=== PATIENT | male | born 1960 | race Caucasian/White ===

== ENCOUNTER 2021-04-03 18:38 | Inpatient (IN) | payer MEDICARE ==
[~2021-04-03] VITALS: Ht 175.3 cm; Wt 54.4 kg
[2021-04-03 18:52] VITALS: BP 123/61
[2021-04-03 19:13] LABS: APTT 20.1 SECONDS (22.8-39.4); INR 1.05 (0.85-1.17); PROTIME 12.7 SECONDS (11.6-15.0)
[2021-04-03 19:14] LABS: HEMATOCRIT 48.8 % (42.0-54.0); MCHC 32.9 g/dL (31.0-37.0); MCV 91.3 fL (80.0-100.0); MEAN PLATELET VOLUME 9.6 fL (7.4-10.4); PLATELET COUNT 229 10x3/uL (130-400); RBC 5.34 10x6/uL (4.20-6.10); RDW 13.8 % (11.5-14.5); WBC 21.6 10x3/uL (4.8-10.8)
[2021-04-03 19:17] LABS: CALC OSMOLALITY 280 mosm/kg (275-300); CALCIUM 9.2 mg/dL (8.5-10.1); CARBON DIOXIDE 33.2 mmol/L (21.0-32.0); CHLORIDE - SERUM 100 mmol/L (98-107); CREATININE - SERUM 1.2 mg/dL (0.6-1.3); GLUCOSE 86 mg/dL (74-106); POTASSIUM - SERUM 4.6 mmol/L (3.5-5.1); SODIUM 138 mmol/L (136-145); UREA NITROGEN 28 mg/dL (7-18); eGFR NON AFRICAN AMERICAN 65 mL/min (90-120)
[2021-04-03 19:33] LABS: ALBUMIN 4.3 g/dL (3.4-5.0); ALKALINE PHOSPHATASE 92 U/L (30-120); ALT (SGPT) 32 U/L (10-68); BILIRUBIN - TOTAL 0.53 mg/dL (0.2-1.3); CKMB 8.4 U/L (0.0-3.6); CREATINE KINASE 194 UL (21-232); PRO BNP 507 pg/mL (0-125); PROTEIN - SERUM 7.6 g/dL (6.4-8.2)
[2021-04-03 19:47] LABS: LYMPHOCYTES 14 % (15-50); MONOCYTES 1 % (2-11); NEUTROPHILS 85 % (40-80); PLATELET ESTIMATE NORMAL
[2021-04-03 20:30] VITALS: BP 123/70
[2021-04-03 21:30] VITALS: BP 118/68
--- NOTE | 2021-04-03 21:41 | NUR ---
LAB AT BEDSIDE BC DRAWN X 2
[2021-04-03 22:30] VITALS: BP 124/71
--- NOTE | 2021-04-03 23:02 | NUR ---
PT REFUSED TO WEAR BIPAP AT THIS TIME. PT STATES THAT HE WOULD RATHER LEAVE AMA THAN WEAR A MASK. PT INFORMED THAT IT WOULD NOT BE IN HIS BEST CARE TO TAKE IT OFF PT PULLING AT BIPAP AND OTHER LINES. PT TAKEN OFF RESP CALLED. DR KURT MAYO.
[2021-04-03 23:05] VITALS: BP 118/71
--- NOTE | 2021-04-03 23:13 | NUR ---
KURT INFORMED PT WILL BE CONT TO BE MONITORED WILL SEE IN AM. RT INFORMED.
[2021-04-04] VITALS (10 sets, daily range): BP systolic 96–157; BP diastolic 32–127; BMI 17.7
--- NOTE | 2021-04-04 06:35 | NUR ---
pt still refusing bipap. pt urinal emptied. 500mL
--- NOTE | 2021-04-04 06:52 | NUR ---
ua sent to lab
[2021-04-04 07:12] LABS: BILIRUBIN NEGATIVE (NEGATIVE); KETONE NEGATIVE (NEGATIVE); NITRITE NEGATIVE (NEGATIVE); UROBILINOGEN NORMAL mg/dL (< 2)
[2021-04-04 07:20] LABS: UDS - AMPHET NEGATIVE QUAL (NEGATIVE); UDS - BARB NEGATIVE QUAL (NEGATIVE); UDS - BENZO NEGATIVE QUAL (NEGATIVE); UDS - COCAINE NEGATIVE QUAL (NEGATIVE); UDS - OPIATE NEGATIVE QUAL (NEGATIVE); UDS - PCP NEGATIVE QUAL (NEGATIVE); UDS - THC NEGATIVE QUAL (NEGATIVE)
--- NOTE | 2021-04-04 07:25 | NUR ---
LYING IN BED WITH HOB ELEVATED. AWAKE ALERT AND ORIENTATEDX3. DENIES PAIN. REFUSES TO WEAR BIPAP. O2 AT 3.5L NC. RECEIVING UPDRAFT VIA RESPATORY AT PRESENT. DEMI UPPER WHEEZES NOTED. WILL CON'T TO MONITOR.
[2021-04-04 08:20] LABS: BASOPHILS 0.3 % (0-2); EOSINOPHILS 0 % (0-7)
[2021-04-04 08:21] LABS: HEMATOCRIT 44.9 % (42.0-54.0); LYMPHOCYTES 5.7 % (15-50); MCH 30.4 pg (26.0-34.0); MCHC 33.3 g/dL (31.0-37.0); MCV 91.3 fL (80.0-100.0); MEAN PLATELET VOLUME 9.6 fL (7.4-10.4); MONOCYTES 1.1 % (2-11); NEUTROPHILS 92.9 % (40-80); RBC 4.92 10x6/uL (4.20-6.10)
[2021-04-04 08:24] LABS: PLATELET COUNT 176 10x3/uL (130-400); WBC 13.3 10x3/uL (4.8-10.8)
[2021-04-04 08:30] LABS: ALBUMIN 3.8 g/dL (3.4-5.0); BILIRUBIN - TOTAL 0.52 mg/dL (0.2-1.3); CALCIUM 8.8 mg/dL (8.5-10.1); CARBON DIOXIDE 34.7 mmol/L (21.0-32.0); CREATININE - SERUM 1.1 mg/dL (0.6-1.3); MAGNESIUM - SERUM 2.4 mg/dL (1.8-2.4); POTASSIUM - SERUM 4.7 mmol/L (3.5-5.1); PROTEIN - SERUM 6.7 g/dL (6.4-8.2)
--- NOTE | 2021-04-04 10:35 | NUR ---
ATTEMPTED TO GIVE SOUMEDROL- ORDER SAYS NAZARIO'D PER MD. MEDICATION NOT GIVEN
--- NOTE | 2021-04-04 10:59 | NUR ---
MESSAGE LEFT FOR CASE MANAGEMENT CONCERNING PATIENT BEING HOMELESS AND THE POSSIBILITY OF PATIENT NEEDING RELEASED WITH OXYGEN.
--- NOTE | 2021-04-04 11:57 | NUR ---
PATIENT SERVED LUNCH TRAY- SITTING ON SIDE OF BED- DENIED NEEDING ASSISTANCE WITH TRAY.
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
--- NOTE | 2021-04-04 17:53 | NUR ---
ALERT AND ORIENTED X4. SITTING UP IN BED. PRBC TRANSFUSION COMPLETE. DC RT HAND IV TIP INTACT. DISCHARGE INSTRUCTIONS GIVEN VERBALLY AND WRITTEN. DISCHARGE PAPERS SIGNED ON CHART. NOTIFY SPOUSE FOR RIDE. CONTINUE PLAN OF CARE AND SAFETY PRECAUTIONS.
--- NOTE | 2021-04-05 01:44 | NUR ---
PT REFUSED TO WEAR BIPAP
[2021-04-05 06:07] VITALS: BP 110/67
[2021-04-05 06:28] LABS: BASOPHILS 0.1 % (0-2); EOSINOPHILS 0 % (0-7); HEMATOCRIT 47.4 % (42.0-54.0); HEMOGLOBIN 15.5 g/dL (13.5-17.5); LYMPHOCYTES 8.4 % (15-50); MCHC 32.6 g/dL (31.0-37.0); MCV 91.8 fL (80.0-100.0); MEAN PLATELET VOLUME 10.1 fL (7.4-10.4); MONOCYTES 4.7 % (2-11); NEUTROPHILS 86.8 % (40-80); PLATELET COUNT 202 10x3/uL (130-400); RBC 5.17 10x6/uL (4.20-6.10); RDW 13.8 % (11.5-14.5); WBC 15.7 10x3/uL (4.8-10.8)
[2021-04-05 06:54] LABS: ALKALINE PHOSPHATASE 96 U/L (30-120); ALT (SGPT) 33 U/L (10-68); BILIRUBIN - TOTAL 0.37 mg/dL (0.2-1.3); CALC OSMOLALITY 280 mosm/kg (275-300); CALCIUM 9.1 mg/dL (8.5-10.1); CARBON DIOXIDE 32.2 mmol/L (21.0-32.0); CHLORIDE - SERUM 100 mmol/L (98-107); GLUCOSE 116 mg/dL (74-106); MAGNESIUM - SERUM 2.4 mg/dL (1.8-2.4); POTASSIUM - SERUM 4.4 mmol/L (3.5-5.1); PROTEIN - SERUM 7.1 g/dL (6.4-8.2); SODIUM 137 mmol/L (136-145); UREA NITROGEN 29 mg/dL (7-18); eGFR NON AFRICAN AMERICAN 80 mL/min (90-120)
[2021-04-05 08:05] VITALS: BP 127/76
--- NOTE | 2021-04-05 11:32 | NUR ---
PT SITTING ON SIDE OF BED HAVING LOTS OF ANXIETY ABOUT SITUATION, HOMELESS AND HAVING HARD TIME GETTING OXYGEN FILLED. STATING WANTS TO JUST GO AND BE WITH MOMMA. DR ACOSTA AND MARIANGEL SCHUMACHER HAVE TALKED TO PT AND TRYING TO GET CM TO ASSIST IN CARE. PT LIKELY TO LEAVE AMA BUT TRYING TO GET TO STAY.
[2021-04-05 12:27] VITALS: BP 109/67
[2021-04-05 13:53] VITALS: Ht 175.3 cm; Wt 54.4 kg
--- NOTE | 2021-04-05 16:41 | MORECARE ---
CASE MANAGEMENT DISCHARGE SUMMARY PATIENT: TODD ROBERT UNIT: [id number] ADM DATE: 04/03/21 AGE: 60 : 56 SEX: M ROOM/BED: D.2112 AUTHOR: CHAITANYA CARDOZO PHYSICIAN: REFERRING PHYSICIAN: JENNY ORTIZ MD DATE OF SERVICE: 04/05/21 Case Management Discharge Planning Summary COMMENTS ENTERED DATE: 04/05/21 16:34 CT COMMENT TYPE: Discharge Planning REVIEWER: Cesia Franklin CM met with patient to discuss discharge planning/needs. He states he received oxygen from [facility] [place] in [place]. States he is living in his car. States his cigarette deputy grand jury is not working, so he cannot get the adapter for it to get oxygen in the car. States he has SSI and SSD and receives 865 dollars a month income. I asked if he was able to get a short term motel room and he states he cannot without a room mate. He states he has a son, but he doesn't have anything to do with him. States he recently came here from [place] but would like to stay in [place]. I gave him a list of food pantry's and shelters in [facility]. He states he would like to see if he qualifies for intermediate project manager fci. I asked if he was disabled and needed assistance with ADL's and he says he does. States he cannot tie his shoes or button his shirt. States he is unable to ambulate long distances. I asked if I could call a liaison to a fci to see if he qualifies and he said yes. I spoke with Kisha and she will look at his face sheet to see if he has any benefits. I also faxed a face sheet to [facility] [place] to see if they can assist with oxygen. CM will continue to follow and assist with discharge planning/needs DCP REVIEW SUMMARY ANTICIPATED D/C DATE: EXPECTED LOS : CASE STATUS: DCP Initiated INITIAL REVIEW: 04/05/2021 INITIAL REVIEWER: Cesia Franklin FINAL DISCHARGE DISPOSITION: : FINAL REVIEWER: FINAL REVIEW DATE: DCP Focus Questions & Answers DCP Evaluation QUESTION: ANSWER Patient's current cognitive status: : *Oriented to person, place, situation, time and present Patient's ability to cope with chronic illness : d. No chronic illness Patient gives permission to discuss discharge plans with: (name, relationship and number) : No one per patient Physical Status: : Mobility impaired Living Arrangements: : Homeless Partial Dependence, assistance required for: : Ambulation / Mobility Baseline cognitive status: : *Oriented to person, place, situation, time and present Pharmacy name(s): : No pharmacy Does Patient have transportation to get home and to follow-up medical appointments when discharged from the hospital? : No Would patient like to participate in any Care Coordination programs (if applicable): : Not applicable Equipment in use: : None Mental health screen: : No mental health history DCP Re-evaluation QUESTION: ANSWER Would patient like to participate in any Care Coordination programs (if applicable): : Not applicable PATIENT: TODD ROBERT ENCOUNTER: [id number] MEDICAL RECORD#: [id number] ADMISSION DATE: 04/03/2021 DISCHARGE DATE: ATTENDING MD: GALINA NAIR : AGE: 60 MARITAL STATUS: S DC PLAN ID: [id number] FACILITY: [facility] PRINTED ON: 04/05/21 16:41 CT All edits/amendments must be made on the electronic document DICTATION DATE: 04/05/211640 CARTON FILLING MACHINE OPERATOR: TATIANA 04/05/21 164 RPT#: [id number] DC DATE: STATUS: ADM IN [facility] [address] [place] [address] END OF REPORT
[2021-04-05 19:34] VITALS: BP 120/72
--- NOTE | 2021-04-05 20:30 | NUR ---
REC'D WALKING ROUNDS SITTING IN BSCHAIR WITH HEADPHONES ON . DENIES ANY COMPLAINTS AT PRESENT TIME STATES THEY ARE TRYING TO FIND ME A PLACE TO GO SO I CAN GET O2 SAYS INSURANCE WON'T PAY FOR HOME 02. WILL CONTINUE TO MONITOR FOR ANY CHGES AND FOLLOW CURRENT PLAN OF CARE
[2021-04-06 04:03] VITALS: BP 114/59
[2021-04-06 05:47] LABS: BASOPHILS 0.2 % (0-2); EOSINOPHILS 0 % (0-7); HEMATOCRIT 40.6 % (42.0-54.0); HEMOGLOBIN 13.5 g/dL (13.5-17.5); LYMPHOCYTES 10.2 % (15-50); MCH 30.1 pg (26.0-34.0); MCHC 33.2 g/dL (31.0-37.0); MCV 90.8 fL (80.0-100.0); MEAN PLATELET VOLUME 9.9 fL (7.4-10.4); MONOCYTES 2.1 % (2-11); NEUTROPHILS 87.5 % (40-80); PLATELET COUNT 178 10x3/uL (130-400); RBC 4.47 10x6/uL (4.20-6.10); RDW 13.9 % (11.5-14.5)
--- NOTE | 2021-04-06 05:57 | NUR ---
I have reviewed this patient and I concur with the Shift Assessment completed by the Licensed Practical Nurse today this shift.
[2021-04-06 06:31] LABS: WBC 9.7 10x3/uL (4.8-10.8)
[2021-04-06 06:38] LABS: ALBUMIN 3.1 g/dL (3.4-5.0); ALKALINE PHOSPHATASE 72 U/L (30-120); ALT (SGPT) 27 U/L (10-68); CALC OSMOLALITY 285 mosm/kg (275-300); CALCIUM 8.4 mg/dL (8.5-10.1); CARBON DIOXIDE 30.5 mmol/L (21.0-32.0); CHLORIDE - SERUM 102 mmol/L (98-107); GLUCOSE 122 mg/dL (74-106); MAGNESIUM - SERUM 2.3 mg/dL (1.8-2.4); POTASSIUM - SERUM 4.3 mmol/L (3.5-5.1); PROTEIN - SERUM 5.6 g/dL (6.4-8.2); SODIUM 139 mmol/L (136-145); UREA NITROGEN 31 mg/dL (7-18); eGFR NON AFRICAN AMERICAN 80 mL/min (90-120)
[2021-04-06 08:45] VITALS: BP 109/52
--- NOTE | 2021-04-06 08:57 | NUR ---
ALERT AND ORIENTED. ASSESSMENT COMPLETE. DENIES NEEDS. BED LOW. CALL PEREZ AND PERSONAL ITEMS IN REACH. WILL CONTINUE TO MONITOR.
[2021-04-06 12:00] VITALS: BP 103/82
--- NOTE | 2021-04-06 16:10 | NUR ---
PATIENT WANTS TO LEAVE AMA. STATES "THERE'S NOTHING ELSE Y'ALL CAN DO FOR ME HERE. MY INSURANCE WON'T PAY FOR ANYTHING ANYWAY." PATIENT HAS BEEN EDUCATED BY NURSE AND PHYSICIAN AND ENVIRONMENTAL RESEARCH PROJECT MANAGER. STILL WANTS TO LEAVE AMA. FORM SIGNED. ENDY LE PAGED. DR SAMANO PAGED. IV REMOVED FROM RFA WITH TIP INTACT.
--- NOTE | 2021-04-06 16:45 | MORECARE ---
CASE MANAGEMENT DISCHARGE SUMMARY PATIENT: TODD ROBERT UNIT: [id number] ADM DATE: 04/03/21 AGE: 60 : 56 SEX: M ROOM/BED: D.2223 AUTHOR: CHAITANYA CARDOZO PHYSICIAN: REFERRING PHYSICIAN: JENNY ORTIZ MD DATE OF SERVICE: 04/06/21 Case Management Discharge Planning Summary COMMENTS ENTERED DATE: 04/05/21 16:34 CT COMMENT TYPE: Discharge Planning REVIEWER: Cesia Franklin CM met with patient to discuss discharge planning/needs. He states he received oxygen from [facility] in [place]. States he is living in his car. States his cigarette tong hooker is not working, so he cannot get the adapter for it to get oxygen in the car. States he has SSI and SSD and receives 865 dollars a month income. I asked if he was able to get a short term motel room and he states he cannot without a room mate. He states he has a son, but he doesn't have anything to do with him. States he recently came here from [place] but would like to stay in [place]. I gave him a list of food pantry's and shelters in [facility]. He states he would like to see if he qualifies for rn long term care fci. I asked if he was disabled and needed assistance with ADL's and he says he does. States he cannot tie his shoes or button his shirt. States he is unable to ambulate long distances. I asked if I could call a liaison to a fci to see if he qualifies and he said yes. I spoke with Kisha and she will look at his face sheet to see if he has any benefits. I also faxed a face sheet to [facility] to see if they can assist with oxygen. CM will continue to follow and assist with discharge planning/needs DCP REVIEW SUMMARY ANTICIPATED D/C DATE: EXPECTED LOS : CASE STATUS: DCP Initiated INITIAL REVIEW: 04/05/2021 INITIAL REVIEWER: Cesia Franklin FINAL DISCHARGE DISPOSITION: : FINAL REVIEWER: FINAL REVIEW DATE: DCP Focus Questions & Answers DCP Evaluation QUESTION: ANSWER Patient gives permission to discuss discharge plans with: (name, relationship and number) : No one per patient Patient's ability to cope with chronic illness : d. No chronic illness Patient's current cognitive status: : *Oriented to person, place, situation, time and present Physical Status: : Mobility impaired Partial Dependence, assistance required for: : Ambulation / Mobility Living Arrangements: : Homeless Baseline cognitive status: : *Oriented to person, place, situation, time and present Pharmacy name(s): : No pharmacy Does Patient have transportation to get home and to follow-up medical appointments when discharged from the hospital? : No Would patient like to participate in any Care Coordination programs (if applicable): : Not applicable Equipment in use: : None Mental health screen: : No mental health history DCP Re-evaluation QUESTION: ANSWER Would patient like to participate in any Care Coordination programs (if applicable): : Not applicable PATIENT: TODD ROBERT ENCOUNTER: [id number] MEDICAL RECORD#: [id number] ADMISSION DATE: 04/03/2021 DISCHARGE DATE: 04/06/2021 ATTENDING MD: GALINA NAIR : AGE: 60 MARITAL STATUS: S DC PLAN ID: [id number] FACILITY: [facility] PRINTED ON: 04/06/21 16:45 CT All edits/amendments must be made on the electronic document DICTATION DATE: 04/06/211644 CORN HUSKER MACHINE OPERATOR: TATIANA 04/06/211644 RPT#: [id number] DC DATE:04/06/21 STATUS: DIS IN [facility] [address] [place] [address] END OF REPORT
--- NOTE | 2021-04-08 10:39 | MORECARE ---
CASE MANAGEMENT DISCHARGE SUMMARY PATIENT: TODD ROBERT UNIT: [id number] ADM DATE: 04/03/21 AGE: 60 : 56 SEX: M ROOM/BED: D.2223 AUTHOR: CASDOC PHYSICIAN: REFERRING PHYSICIAN: JENNY ORTIZ MD DATE OF SERVICE: 04/08/21 Case Management Discharge Planning Summary COMMENTS ENTERED DATE: 04/05/21 16:34 CT COMMENT TYPE: Discharge Planning REVIEWER: Cesia Franklin CM met with patient to discuss discharge planning/needs. He states he received oxygen from [facility] in [place]. States he is living in his car. States his cigarette coordinator of evaluation is not working, so he cannot get the adapter for it to get oxygen in the car. States he has SSI and SSD and receives 865 dollars a month income. I asked if he was able to get a short term motel room and he states he cannot without a room mate. He states he has a son, but he doesn't have anything to do with him. States he recently came here from [place] but would like to stay in [place]. I gave him a list of food pantry's and shelters in [facility]. He states he would like to see if he qualifies for [facility] nursing. I asked if he was disabled and needed assistance with ADL's and he says he does. States he cannot tie his shoes or button his shirt. States he is unable to ambulate long distances. I asked if I could call a liaison to a skilled nursing to see if he qualifies and he said yes. I spoke with Kisha and she will look at his face sheet to see if he has any benefits. I also faxed a face sheet to [facility] to see if they can assist with oxygen. CM will continue to follow and assist with discharge planning/needs DCP REVIEW SUMMARY ANTICIPATED D/C DATE: EXPECTED LOS : CASE STATUS: DCP Initiated INITIAL REVIEW: 04/05/2021 INITIAL REVIEWER: Cesia Franklin FINAL DISCHARGE DISPOSITION: : FINAL REVIEWER: FINAL REVIEW DATE: DCP Focus Questions & Answers DCP Evaluation QUESTION: ANSWER Patient's current cognitive status: : *Oriented to person, place, situation, time and present Patient's ability to cope with chronic illness : d. No chronic illness Patient gives permission to discuss discharge plans with: (name, relationship and number) : No one per patient Physical Status: : Mobility impaired Living Arrangements: : Homeless Partial Dependence, assistance required for: : Ambulation / Mobility Baseline cognitive status: : *Oriented to person, place, situation, time and present Pharmacy name(s): : No pharmacy Does Patient have transportation to get home and to follow-up medical appointments when discharged from the hospital? : No Would patient like to participate in any Care Coordination programs (if applicable): : Not applicable Equipment in use: : None Mental health screen: : No mental health history DCP Re-evaluation QUESTION: ANSWER Would patient like to participate in any Care Coordination programs (if applicable): : Not applicable PATIENT: TODD ROBERT ENCOUNTER: [id number] MEDICAL RECORD#: [id number] ADMISSION DATE: 04/03/2021 DISCHARGE DATE: 04/06/2021 ATTENDING MD: GALINA NAIR : AGE: 60 MARITAL STATUS: S DC PLAN ID: [id number] FACILITY: [facility] PRINTED ON: 04/08/21 10:39 CT All edits/amendments must be made on the electronic document DICTATION DATE: 04/08/21 1039 SLUMBER ROOM ATTENDANT: DM 04/08/21 1039 RPT#: [id number] DC DATE:04/06/21 STATUS: DIS IN [facility] [address] [place] [address] END OF REPORT
== END 2021-04-06 16:37 | disposition left against medical advice (07) | DRG 189 ==
LOC: D.ER 18:38 → D.MS 19:17 → D.EDHOLD 19:17 → D.M2 19:17 → D.EDHOLD 04-04 02:29 → D.M2 04-04 13:21 → D.MS 04-05 19:08
PROVIDERS: Family Medicine; ADMIT Emergency Medicine; ATTEND Emergency Medicine
DX: J96.21 Acute and chronic respiratory failure with hypoxia (principal); J44.1 Chronic obstructive pulmonary disease with (acute) exacerbation; F17.213 Nicotine dependence, cigarettes, with withdrawal; J96.22 Acute and chronic respiratory failure with hypercapnia; Z59.0 Homelessness